=== PATIENT | male | born 1970 | race Caucasian/White ===

== ENCOUNTER 2019-06-21 12:17 | Emergency (ER) | payer MEDICAID, OTHER ==
[~2019-06-21] VITALS: Ht 175.3 cm; Wt 70.3 kg
--- NOTE | 2019-06-21 12:38 | ED Back Pain ---
General Chief Complaint: Back Problems Stated Complaint: BACK PAIN History of Present Illness Date Seen by Provider: Jun 21, 2019 Time Seen by Provider: 12:37 Initial Comments Patient presenting to the emergency department for evaluation of back pain that is a constant issue however he says it is much worse over the past several days. He says it is left lumbar and thoracic and he can be comfortable in certain positions however if he twists his torso or stands up he feels excruciating pain. He denies any abdominal pain dysuria hematuria fevers chills nausea vomiting. He says that he generally takes NSAIDs for pain and that helps however currently they are not helping. He denies any known trauma or overuse. No bowel or bladder incontinence unilateral weakness numbness or tingling. He is in no obvious distress with normal vital signs. Allergies and Home Medications Allergies Coded Allergies: No Known Drug Allergies (Unverified , 06/21/19) Patient Home Medication List Home Medication List Reviewed: Yes Review of Systems Constitutional: no symptoms reported Respiratory: no symptoms reported Cardiovascular: no symptoms reported Gastrointestinal: no symptoms reported Genitourinary: no symptoms reported Musculoskeletal: back pain Skin: no symptoms reported Psychiatric/Neurological: No Symptoms Reported Physical Exam Vital Signs Capillary Refill : Height, Weight, BMI Height: '" Weight: lbs. oz. kg; BMI Method: General Appearance: No Apparent Distress, WD/WN Cardiovascular: Regular Rate, Rhythm Respiratory: Lungs Clear, No Respiratory Distress Gastrointestinal: Non Tender, Soft Back: Other (left lumbar and thoracic paraspinal muscles are having active spasm and he has tenderness to palpation. No midline tenderness to palpation.) Extremity: Normal Capillary Refill Neurologic/Psychiatric: Alert, Oriented x3, No Motor/Sensory Deficits Skin: Normal Color Progress/Results/Core Measures Results/Orders My Orders Orders - PATRICIA CAMACHO DO Diazepam Tablet (Valium Tablet) (06/21/19 12:45) Oxycodone/Apap 5/325mg Tablet (Percocet (06/21/19 12:45) Dexamethasone Injection (Decadron Inject (06/21/19 12:45) Progress Progress Note : Progress Note Patient presenting to the emergency department for evaluation of back pain that appears to be consistent with muscular skeletal back pain. No red flag signs or symptoms necessitating emergent MRI or further workup. He was given Percocet and Valium Decadron and his pain improved. He says he does not have a primary care provider at this time and I told him he should get one and try and arrange follow-up for as soon as possible as this is likely going to be a recurrent and progressive issue. Patient will be prescribed Percocet for pain and he was told to use lidocaine patch and continued NSAIDs. Patient aware and agreeable with plan for discharge and verbalized understanding of the need for short-term follow-up and strict ED return precautions discussed including worsening pain neurologic changes or other general concerns. Departure Impression Primary Impression: Thoracic back pain Additional Impression: Lumbar sprain Disposition: HOME, SELF-CARE Condition: Stable Departure-Patient Inst. Referrals: NO,LOCAL PHYSICIAN (PCP/Family) Primary Care Physician Patient Instructions: Lumbar Muscle Strain (DC) Add. Discharge Instructions: All discharge instructions reviewed with patient and/or family. Voiced understanding. Use otc tylenol and lidocaine patches. Follow with a primary care provider. Scripts Naproxen (Naprosyn) 500 Mg Tablet 500 MG PO BID, #14 TAB 0 Refills Prov: PATRICIA CAMACHO DO 06/21/19 Oxycodone HCl/Acetaminophen (Percocet 5-325 mg Tablet) 1 Each Tablet 1 TAB PO Q4H for PAIN-MODERATE MDD 6 TABS for 7 Days, #12 TAB Prov: PATRICIA CAMACHO DO 06/21/19 PATRICIA CAMACHO DO Jun 21, 2019 12:38
[2019-06-21] MEDS ORDERED: oxyCODONE/APAP 5/325MG (PERCOCET 5) TABLET PO ONE (12:45)
[2019-06-21] MEDS ORDERED: OXYC1TAB87 PO (12:45)
[2019-06-21] MEDS ORDERED: DIAZEPAM 5 MG (VALIUM) TABLET PO ONE (12:45)
[2019-06-21] MEDS ORDERED: NAPR-1071 PO (12:45)
[2019-06-21] MEDS ORDERED: DEXAMETHASONE 10 MG/ML (DECADRON) 1 ML VIAL IM ONE (12:45)
[2019-06-21 12:50] VITALS: BP 116/82
--- NOTE | 2019-06-21 12:50 | NUR ---
Pt discharged to home per Nicol SQUIRES with review of instructions verbalized.
== END 2019-06-21 12:50 | disposition home or self-care (01) ==
LOC: ER FS 12:20
DX: S33.5XXA Sprain of ligaments of lumbar spine, initial encounter (principal); M54.6 Pain in thoracic spine; X50.1XXA Overexertion from prolonged static or awkward postures, initial encounter
CPT/HCPCS: 99284

== ENCOUNTER → 2019-11-30 | Outpatient (CLI) | payer MEDICAID ==
[~2019-11-30] MED LIST: NAPR-1071 PO; OXYC1TAB87 PO
--- NOTE | 2019-11-30 13:37 | Diagnostic Imaging Report ---
INDICATION: Chronic right hand pain, no known injury TECHNIQUE: Three views of the right hand. CORRELATION STUDY: None FINDINGS: There is normal alignment and appearance of the osseous structures of the hand. Slightly prominent spurlike projection off the mid scaphoid bone. Likely no significance, perhaps changes from prior injury. The joint spaces are otherwise maintained. There is no acute fracture. Soft tissues are unremarkable. IMPRESSION: 1. Negative for acute bony abnormality of the hand. Dictated by: Dictated on workstation # [id number]
--- NOTE | 2019-11-30 13:59 | Diagnostic Imaging Report ---
EXAMINATION: Right knee at 1:27 PM. INDICATION: Chronic knee pain. FINDINGS: Three views were obtained. There are no prior studies available for comparison. There is no fracture, dislocation or acute bony abnormality evident. There are multiple (at least 10) 1.5-2 cm rounded calcific densities in the soft tissues along the anterior aspect of the distal femur. 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 If further evaluation is desired, then MRI would be recommended. There is also moderate narrowing of both the medial and lateral compartments of the knee joint and the patellofemoral space. Chondrocalcinosis is noted as well. IMPRESSION: 1. There is no evidence for an acute bony abnormality. 2. 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 Recommendations as above. Dictated by: Dictated on workstation # [id number]
== END ==
LOC: RAD FS 13:19
PROVIDERS: ATTEND Nurse Practitioner
DX: M25.861 Other specified joint disorders, right knee (principal); M25.561 Pain in right knee; M79.641 Pain in right hand
CPT/HCPCS: 73130; 73562

== ENCOUNTER 2020-02-12 07:54 | Emergency (ER) | payer MEDICAID ==
[~2020-02-12] VITALS: Ht 175 cm; Wt 63.4 kg
--- OUTSIDE RECORDS SUMMARY | 2020-02-12 08:10 | XMS REPORT | Continuity of Care Document ---
Author Organization Unknown Address Unknown Phone Unavailable Allergies Active Description Code Type Severity Reaction Onset Reported/Identified Relationship to Patient Clinical Status Yes aspirin [id number] Drug Allergy Mild hives 06/21/2019 Yes No Known Drug Allergies [id number] Drug Allergy Unknown N/A 06/21/2019 Medications There is no data. Problems Date Dx Coded Attending Type Code Diagnosis Diagnosed By 06/21/2019 PATRICIA CAMACHO DO, Ot M54 .5 LOW BACK PAIN 06/21/2019 PATRICIA CAMACHO DO Ot M54 .6 PAIN IN THORACIC SPINE 06/21/2019 PATRICIA CAMACHO DO Ot S33.5XXA SPRAIN OF LIGAMENTS OF LUMBAR SPINE, INI 06/21/2019 PATRICIA CAMACHO DO Ot X50.1XXA OVEREXERTION FROM PROLONGED STATIC OR AW 06/23/2019 PATRICIA CAMACHO DO Ot M54 .5 LOW BACK PAIN 06/23/2019 PATRICIA CAMACHO DO, Ot M54 .6 PAIN IN THORACIC SPINE 06/23/2019 PATRICIA CAMACHO DO Ot S33.5XXA SPRAIN OF LIGAMENTS OF LUMBAR SPINE, INI 06/23/2019 PATRICIA CAMACHO DO Ot X50.1XXA OVEREXERTION FROM PROLONGED STATIC OR AW 12/04/2019 NICKI CAO Ot M25.561 PAIN IN RIGHT KNEE 12/04/2019 NICKI CAO Ot M25.861 OTHER SPECIFIED JOINT DISORDERS, RIGHT K 12/04/2019 NICKI CAO Ot M79.641 PAIN IN RIGHT HAND Procedures There is no data. Results There is no data. Encounters ACCT No. Visit Date/Time Discharge Status Pt. Type Provider Facility Loc./Unit Complaint [id number] 11/30/2019 13:19:00 020 23:59:59 CLS Outpatient NICKI CAO [facility] RAD FS M79.641 M25.561 [id number] 06/21/2019 12:20:00 12:50:00 DIS Emergency PATRICIA CAMACHO DO [facility] ER FS BACK PAIN
--- NOTE | 2020-02-12 08:14 | ED Upper Extremity ---
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 denies taking medication for pain. states has not been able to sleep due to pain Nursing Sepsis Screen: No Definite Risk Source: patient Exam Limitations: no limitations History of Present Illness Date Seen by Provider: Feb 12, 2020 Time Seen by Provider: 08:05 Initial Comments 50-year-old male presents with right shoulder pain. Patient reports that he fell yesterday evening. That he's landed on his right shoulder. Patient reports that he is getting worsening pain. He has not taken any for the pain. Reports pain with any type of movement. Pain is in the anterior portion of the shoulder. No numbness or tingling. No other injury. Allergies and Home Medications Allergies Coded Allergies: aspirin (Unverified Adverse Reaction, Mild, hives, 06/21/19) Home Medications No Active Prescriptions or Reported Meds Patient Home Medication List Home Medication List Reviewed: Yes Review of Systems Constitutional: No chills, No fever Respiratory: no symptoms reported Cardiovascular: no symptoms reported Gastrointestinal: no symptoms reported Musculoskeletal: see HPI Skin: no symptoms reported Psychiatric/Neurological: No Symptoms Reported Past Hdotbns-Pcwncb-Sjhrzs Hx Past Med/Social Hx: Reviewed Nursing Past Med/Soc Hx Patient Social History Alcohol Use: Denies Use Recreational Drug Use: No Smoking Status: Current Everyday Smoker Type Used: Cigarettes 2nd Hand Smoke Exposure: Yes Recent Foreign Travel: No Contact w/Someone Who Travel: No Recent Infectious Disease Expo: No Recent Hopitalizations: No Seasonal Allergies Seasonal Allergies: No Past Medical History Surgeries: Yes (Fx R foot, R knee arthroscopy) Orthopedic Respiratory: No Cardiac: No Neurological: No Genitourinary: No Gastrointestinal: No Musculoskeletal: Yes (Hx Inguinal hernia, crush injury R foot 08/2015) Arthritis, Chronic Back Pain, Fractures Endocrine: No HEENT: No Cancer: No Psychosocial: No Integumentary: No Blood Disorders: No Physical Exam Vital Signs Vital Signs - First Documented 02/12/20 07:58 Temp 36.3 Pulse 79 Resp 18 B/P (MAP) 114/73 (87) Pulse Ox 96 Capillary Refill : Less Than 3 Seconds Height, Weight, BMI Height: 5'9.00" Weight: 155lbs. oz. 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, no motor/sensory deficits, alert, normal mood/affect Progress/Results/Core Measures Results/Orders My Orders Orders - REMINGTON ADKINS DO Shoulder 3 View Right (02/12/20 08:14) Vital Signs/I&O 02/12/20 07:58 Temp 36.3 Pulse 79 Resp 18 B/P (MAP) 114/73 (87) Pulse Ox 96 Blood Pressure Mean: 87 Diagnostic Imaging Diagonstic Imaging: Xray Plain Films/CT/US/NM/MRI: other (rt shoulder ) Comments [facility] [place] NAME: JACEY SCHNEIDER II MED REC#: [id number] PT STATUS: REG ER : 1970 PHYSICIAN: REMINGTON ADKINS DO ADMIT DATE: 02/12/20/ER FS Draft Date of Exam:02/12/20 SHOULDER 3 VIEW RIGHT Clinical indication: Patient status post fall yesterday and has right shoulder pain. EXAM: X-ray of the right shoulder, 3 views including scapular Y view. COMPARISON: None. FINDINGS: There is no acute fracture or dislocation. There is mildly hypertrophic spurs involving the right acromioclavicular joint. There is mild spurring of the proximal humeral head/neck junction region and inferior glenoid rim. The glenohumeral joint is intact. 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 Reviewed: Reviewed by Me, Reviewed/Discussed Departure Impression Primary Impression: Contusion of right shoulder, initial encounter Disposition: 01 HOME, SELF-CARE Condition: Stable Departure-Patient Inst. Referrals: [facility] (PCP) Primary Care Physician MARC GRIDER APRN (Family) Primary Care Physician Patient Instructions: Shoulder Pain (DC), Contusion (DC) Add. Discharge Instructions: 4% topical lidocaine with menthol to affected area as directed on package Ice for 24 hours then warm moist heat to affected area Emergency department focuses on treating and ruling out life-threatening diseases. Whenever possible, a diagnosis is given. However, most patients are given an impression based on their history, physical exam, and workup during your brief time in the ER. Information about probable diagnosis and other educ ational material has been provided. Please take the time to read and understand this information. It is very important that you follow up with a physician as discussed during the visit today. Failure to adhere to your follow-up instructions may lead to severe disability, injury, or so please make sure to keep your appointments or obtain one as requested. Please keep in mind the emergency department is not designed to your primary care or "family doctor" and nonurgent issues are best evaluated by an outpatient physician All discharge instructions reviewed with patient and/or family. Voiced understanding. Scripts Naproxen (Naprosyn) 500 Mg Tablet 500 MG PO BID, #30 TAB 0 Refills Prov: REMINGTON ADKINS DO 02/12/20 REMINGTON ADKINS DO Feb 12, 2020 08:14
--- NOTE | 2020-02-12 08:28 | Diagnostic Imaging Report ---
Clinical indication: Patient status post fall yesterday and has right shoulder pain. EXAM: X-ray of the right shoulder, 3 views including scapular Y view. COMPARISON: None. FINDINGS: There is no acute fracture or dislocation. There is mildly hypertrophic spurs involving the right acromioclavicular joint. There is mild spurring of the proximal humeral head/neck junction region and inferior glenoid rim. The glenohumeral joint is intact. 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 Dictated by: Dictated on workstation # [id number]
[2020-02-12] MEDS ORDERED: NAPR-1071 PO (08:38)
[2020-02-12 08:42] VITALS: BP 114/73
== END 2020-02-12 08:42 | disposition home or self-care (01) ==
LOC: EDUNIT# 07:54 → ER FS 07:55
DX: S40.011A Contusion of right shoulder, initial encounter (principal); M19.011 Primary osteoarthritis, right shoulder; F17.210 Nicotine dependence, cigarettes, uncomplicated; W19.XXXA Unspecified fall, initial encounter
CPT/HCPCS: 73030